=== PATIENT | male | born 1950 | race Caucasian/White ===

== ENCOUNTER 2022-10-02 12:20 | Emergency (ER) | payer MEDICARE ==
[~2022-10-02] VITALS: Ht 177.8 cm; Wt 80.7 kg
[2022-10-02] MEDS ORDERED: CLOP75TA15 PO (12:30)
[2022-10-02] MEDS ORDERED: ASPI81TA31 PO (12:30)
[2022-10-02] MEDS ORDERED: OXYM15MI4 NS (13:10)
--- NOTE | 2022-10-02 13:17 | NUR ---
Patient discharged to home in stable condition. Written and verbal after care instructions given. Patient verbalizes understanding of instructions. Stressed follow up or return to ER for worsening s/s.
== END 2022-10-02 13:17 | disposition home or self-care (01) ==
LOC: ER 12:20
DX: R04.0 Epistaxis (principal); Z79.2 Long term (current) use of antibiotics; Z95.820 Peripheral vascular angioplasty status with implants and grafts
CPT/HCPCS: A4663